=== PATIENT | male | born 1940 | race Caucasian/White ===

== ENCOUNTER 2016-06-12 21:06 | Emergency (ER) | payer OTHER ==
[~2016-06-12] VITALS: Ht 180.3 cm; Wt 90.7 kg
[~2016-06-12 21:06] MED LIST: ALLER-TEC10 MG PO; AMLODIPINE BES2.5 MG PO; AMLODIPINE BESYL5 MG PO; ASPIR 8181 M1 PO; CIPRO500 MG PO; COLACE100 MG PO; COMPAZINE10 MG PO; CYANOCOBALAM1000 MCG PO; FLOMAX0.4 MG PO; LEVOTHROID,S0.025 MG PO; LEVOTHYROXINE125 MCG PO; LIPITOR20 MG PO; OMEPRAZOLE20 M2 PO; PERCOCET 5/31 TABLET PO; PRESERVISION S1 EACH PO; VITAMIN D35000 UNIT PO; ZOFRAN8 MG PO
[2016-06-12 21:50] LABS: HEMATOCRIT 36.3 % (38.0-50.0); MCH 31.7 PG (29.0-34.0); MCHC 33.9 G/DL (30.0-36.0); MCV 93.6 FL (86-99); MEAN PLAT.VOLUME 10.5 uM^3 (9.0-12.4); NRBC (%) 0.9 /100 WBC (0-0); RBC DIS.WIDTH-CV 12.8 % (11.8-14.6); RBC DIS.WIDTH-SD 43.4 % (39-53); RED BLOOD COUNT 3.88 M/uL (4.00-5.50)
[2016-06-12 21:59] LABS: CHLORIDE 106 mEq/L (99-109); POTASSIUM 4.1 mEq/L (3.7-5.4); SODIUM 140 mEq/L (136-147)
[2016-06-12 22:01] LABS: GLUCOSE 119 mg/dL (70-99)
[2016-06-12 22:02] LABS: ANION GAP 11 MEQ/L (2-14)
[2016-06-12 22:03] LABS: TOTAL BILIRUBIN 0.4 mg/dL (0.0-1.0)
[2016-06-12 22:04] LABS: ALKALINE PHOSPHATASE 105 IU/L (3-129); GFR ESTIMATE (CALCULATED) 48 mL/min/; PLATELET COUNT 86 K/uL (156-360); WHITE BLOOD COUNT 7.4 K/uL (4.1-10.2)
[2016-06-12 22:06] LABS: UREA NITROGEN (BUN) 24 mg/dL (9-23)
[2016-06-12 22:48] LABS: ADD MIUA? YES; BILIRUBIN NEGATIVE; BLOOD NEGATIVE; COLOR YELLOW ((YELLOW)); GLUCOSE (STRIP) NEGATIVE; KETONES NEGATIVE; LEUKOCYTES TRACE; NITRITE NEGATIVE; PROTEIN (STRIP) 30; SPECIFIC GRAVITY 1.014 (1.000-1.030); UROBILINOGEN 0.2 MG/DL (0.2-1.0)
[2016-06-12 22:52] LABS: BACTERIA NONE SEEN /HPF; EPITHELIAL CELLS RARE /HPF; MUCUS TRACE /LPF; RED BLOOD CELLS 0-5 /HPF (0-5); UCUL ADDED? NO
[2016-06-13] MEDS ORDERED: MIRALAX17 GM PO (01:51)
[2016-06-13] MEDS ORDERED: ULTRAM50 MG PO (01:51)
[2016-06-13 02:09] VITALS: BP 164/79
== END 2016-06-13 02:10 | disposition home or self-care (01) ==
LOC: EME 21:06
DX: M54.5 Low back pain (principal); K59.00 Constipation, unspecified; C67.9 Malignant neoplasm of bladder, unspecified; R53.1 Weakness; I10 Essential (primary) hypertension; E03.9 Hypothyroidism, unspecified; E78.5 Hyperlipidemia, unspecified; F17.200 Nicotine dependence, unspecified, uncomplicated
CPT/HCPCS: 74176; 80053; 81003; 85027; 99281; 99284

== ENCOUNTER 2017-04-03 16:05 | Inpatient (IN) | payer OTHER ==
[~2017-04-03] VITALS: Ht 180.3 cm; Wt 90.9 kg
[~2017-04-03 16:05] MED LIST changes: +GINSENG250 MG PO; +IMODIUM A-D2 M2 PO; +LEVO-T137 MCG PO; +MIRALAX17 GM PO; +NORVASC5 MG PO; +ULTRAM50 MG PO; +ZYRTEC10 M2 PO
[2017-04-03 18:01] LABS: APPEARANCE SL.HAZY ((CLEAR)); BILIRUBIN NEGATIVE; BLOOD NEGATIVE; GLUCOSE (STRIP) 150; KETONES NEGATIVE; LEUKOCYTES NEGATIVE; NITRITE NEGATIVE; PROTEIN (STRIP) NEGATIVE; SPECIFIC GRAVITY 1.018 (1.000-1.030); UROBILINOGEN 0.2 MG/DL (0.2-1.0)
[2017-04-03 18:03] LABS: BACTERIA NONE SEEN /HPF; COLOR AMBER ((YELLOW)); EPITHELIAL CELLS NONE SEEN /HPF; MUCUS TRACE /LPF; RED BLOOD CELLS 0-5 /HPF (0-5); WHITE BLOOD CELLS 0-5 /HPF (0-5)
[2017-04-03 18:06] LABS: HEMATOCRIT 38.3 % (38.0-50.0); HEMOGLOBIN 12.9 G/DL (12.5-16.6); MCH 32.2 PG (29.0-34.0); MCHC 33.7 G/DL (30.0-36.0); MCV 95.5 FL (86-99); PLATELET COUNT 184 K/uL (156-360); RBC DIS.WIDTH-CV 13.1 % (11.8-14.6); RBC DIS.WIDTH-SD 46.3 % (39-53); RED BLOOD COUNT 4.01 M/uL (4.00-5.50); WHITE BLOOD COUNT 5.6 K/uL (4.1-10.2)
[2017-04-03 18:13] LABS: CHLORIDE 105 mEq/L (99-109); POTASSIUM 4.3 mEq/L (3.7-5.4); SODIUM 142 mEq/L (136-147)
[2017-04-03 18:19] LABS: GLUCOSE 127 mg/dL (70-99)
[2017-04-03 18:23] LABS: CREATININE 1.3 mg/dL (0.6-1.3); GFR ESTIMATE (CALCULATED) 57 mL/min/ (58.99-99999)
[2017-04-03 18:24] LABS: UREA NITROGEN (BUN) 24 mg/dL (9-23)
[2017-04-03] MEDS ORDERED: SENNA S TABLET1 EACH PO (21:58)
[2017-04-03] MEDS ORDERED: ROXICODONE5 MG PO (21:59)
[2017-04-03] MEDS ORDERED: ADVIL200 MG PO (21:59)
[2017-04-03] MEDS ORDERED: TYLENOL EXTRA500 MG PO (22:00)
[2017-04-03] MEDS ORDERED: LIPITOR40 MG PO (22:00)
[2017-04-03] MEDS ORDERED: SYNTHROID100 MCG PO (22:01)
[2017-04-03] MEDS ORDERED: VITAMIN B COMP1 EACH PO (22:02)
[2017-04-04 07:48] VITALS: BP 114/56
[2017-04-04 16:01] VITALS: BP 172/84
[2017-04-04 23:20] VITALS: BP 145/65
[2017-04-05 06:33] LABS: HEMATOCRIT 37.3 % (38.0-50.0); HEMOGLOBIN 12.7 G/DL (12.5-16.6); MCH 31.8 PG (29.0-34.0); MCV 93.5 FL (86-99); PLATELET COUNT 185 K/uL (156-360); RBC DIS.WIDTH-CV 12.8 % (11.8-14.6); RED BLOOD COUNT 3.99 M/uL (4.00-5.50); WHITE BLOOD COUNT 5.2 K/uL (4.1-10.2)
[2017-04-05 07:08] LABS: ALBUMIN 3.8 G/DL (3.2-4.8); ALKALINE PHOSPHATASE 73 IU/L (3-129); ALT (GPT) 12 IU/L (3-49); AST (GOT) 19 IU/L (2-34); CHLORIDE 105 MEQ/L (99-109); CREATININE 1.2 MG/DL (0.6-1.3); GFR ESTIMATE (CALCULATED) > 59 mL/min/ (58.99-99999); GLUCOSE 109 mg/dL (70-99); POTASSIUM 4.2 MEQ/L (3.7-5.4); SODIUM 139 MEQ/L (136-147); TOTAL BILIRUBIN 0.7 MG/DL (0.0-1.0); TOTAL PROTEIN 6.2 G/DL (6.4-8.3); UREA NITROGEN (BUN) 24 mg/dL (9-23)
[2017-04-05 08:12] VITALS: BP 143/65
[2017-04-05 16:18] VITALS: BP 143/66
[2017-04-05 22:26] VITALS: BP 161/74
[2017-04-06 03:09] VITALS: BP 132/67
[2017-04-06 08:54] VITALS: BP 150/64
[2017-04-06] MEDS ORDERED: GABAPENTIN100 MG PO (14:51)
[2017-04-06] MEDS ORDERED: ZOFRAN4 MG PO (14:52)
[2017-04-06] MEDS ORDERED: FENTANYL1 EAC4 TD (14:53)
== END 2017-04-06 15:46 | disposition home or self-care (01) | DRG 948 ==
LOC: EME 16:05 → EDOF 04-04 00:47 → ENRESERV 04-04 00:48 → 5EAST 04-04 01:55 → ENPENDDIS 04-06 → 5EAST 04-06 15:46
PROVIDERS: Nurse Practitioner Family; Physician Assistant
DX: G89.3 Neoplasm related pain (acute) (chronic) (principal); M84.58XA Pathological fracture in neoplastic disease, other specified site, initial encounter for fracture; C79.51 Secondary malignant neoplasm of bone; C67.9 Malignant neoplasm of bladder, unspecified; M54.5 Low back pain; S32.511A Fracture of superior rim of right pubis, initial encounter for closed fracture; G62.9 Polyneuropathy, unspecified; S32.592A Other specified fracture of left pubis, initial encounter for closed fracture; F41.0 Panic disorder [episodic paroxysmal anxiety]; I10 Essential (primary) hypertension; E78.2 Mixed hyperlipidemia; K21.0 Gastro-esophageal reflux disease with esophagitis; E03.9 Hypothyroidism, unspecified; M54.10 Radiculopathy, site unspecified; R26.2 Difficulty in walking, not elsewhere classified; Z51.5 Encounter for palliative care; F40.240 Claustrophobia; I25.10 Atherosclerotic heart disease of native coronary artery without angina pectoris; Z87.891 Personal history of nicotine dependence; Z92.21 Personal history of antineoplastic chemotherapy; Z88.1 Allergy status to other antibiotic agents; Z80.1 Family history of malignant neoplasm of trachea, bronchus and lung; Z92.3 Personal history of irradiation; Z83.3 Family history of diabetes mellitus; Z82.3 Family history of stroke; Z79.899 Other long term (current) drug therapy
CPT/HCPCS: 70553; 72158; 72170; 72197; 80048; 80053; 81003; 85027; 99281; 99285; J1650; J1885; J2060; J3010